=== PATIENT | male | born 1985 | race Caucasian/White ===

== ENCOUNTER 2018-01-16 22:51 | Emergency (ER) | payer BC, OTHER ==
--- NOTE | 2018-01-16 23:27 | EDM.PDOC ---
ED HPI GENERAL MEDICAL PROBLEM - General Chief Complaint: Drug or Alcohol Abuse Stated Complaint: DETOX MEDICAL CLEARANCE Time Seen by Provider: 01/16/18 23:04 Source of Information: Reports: Patient History Limitations: Reports: No Limitations - History of Present Illness INITIAL COMMENTS - FREE TEXT/NARRATIVE: This is a 32-year-old male. He was brought in by a commissioned police officer to be medically cleared and to be incarcerated. The patient is talking logically and he seems to be able to hold his balance and walk though he will stumble occasionally. He states he's been drinking beer only no hard liquor and he denies any drugs other than maybe some marijuana. He is not sure whether the marijuana might have been mixed in with his cigarettes. His last drink was around 10 PM and he was picked up by the officer around 10:30 PM. During the entire time I was in the room he was talking and able to carry on a conversation. He was reluctant to tell me how much she actually drunk this evening. The fact that his last drink was probably around 10 PM and at 11:30 I do not believe there is additional alcohol in his abdomen that has not been absorbed. I therefore will not draw an alcohol level since he is coherent and able to physically function for the most part and I'll release him with clearance to be incarcerated. - Related Data Allergies Allergy/AdvReac Type Severity Reaction Status Date / Time No Known Allergies Allergy Verified 01/09/14 16:27 Home Meds: Home Meds . [No Known Home Meds] 01/09/14 [History] Past Medical History - Past Health History Medical/Surgical History: Denies Medical/Surgical History Social & Family History - Family History Family Medical History: Noncontributory - Tobacco Use Smoking Status *Q: Unknown Ever Smoked - Recreational Drug Use Recreational Drug Use: No ED ROS GENERAL - Review of Systems Review Of Systems: See Below Constitutional: Denies: Fever, Chills HEENT: Reports: No Symptoms Respiratory: Reports: No Symptoms Cardiovascular: Reports: No Symptoms Endocrine: Reports: No Symptoms GI/Abdominal: Reports: No Symptoms : Reports: No Symptoms Musculoskeletal: Reports: No Symptoms Skin: Reports: No Symptoms Neurological: Reports: No Symptoms Psychiatric: Reports: No Symptoms Hematologic/Lymphatic: Reports: No Symptoms - Physical Exam Exam: See Below Exam Limited By: Intoxication General Appearance: Alert, WD/WN, No Apparent Distress Eye Exam: Bilateral Eye: Normal Inspection Ears: Normal External Exam Nose: Normal Inspection Throat/Mouth: Normal Inspection, Normal Lips, Normal Voice, No Airway Compromise Head Exam: Normocephalic Neck: Supple Respiratory/Chest: No Respiratory Distress, Lungs Clear, Normal Breath Sounds Cardiovascular: Regular Rate, Rhythm, No Murmur GI/Abdominal: Soft, Non-Tender Neuro Exam (Abbreviated): Alert, Oriented, No Motor/Sensory Deficits, Other ( Patient is awake and talking with no difficulty in carrying on conversation). No: Confused, Slow to Respond Back Exam: Normal Inspection, Full Range of Motion Extremities: Normal Inspection, Normal Range of Motion Psychiatric: Other (Patient appears to be essentially happy) Skin Exam: Warm, Dry Course - Vital Signs Last Recorded V/S: Last Vital Signs Temp 97.8 F 01/16/18 23:00 Pulse 96 01/16/18 23:00 Resp 16 01/16/18 23:00 BP 139/107 H 01/16/18 23:00 Pulse Ox 98 01/16/18 23:00 Departure - Departure Time of Disposition: 23:27 Disposition: Home, Self-Care 01 Condition: Fair Clinical Impression: Alcohol ingestion - Discharge Information Referrals: PCP,None [Primary Care Provider] - Additional Instructions: The patient is cognitively functional and able to carry a conversation, he is physically competent to be able to stand and walk though he does have some mild imbalance, I believe at this time after examination and talking with the patient that he does not have any emergency medical condition that would prevent him from being incarcerated, I will discharge him with the commissioned police officer he may return to the ER as needed
== END 2018-01-16 23:35 | disposition home or self-care (01) ==
LOC: JD.ED 22:51
DX: F10.129 Alcohol abuse with intoxication, unspecified (principal)
CPT/HCPCS: 99282; 99283

== ENCOUNTER 2018-01-18 07:55 | Emergency (ER) | payer BC, OTHER ==
--- NOTE | 2018-01-18 08:16 | EDM.PDOC ---
ED HPI GENERAL MEDICAL PROBLEM - General Chief Complaint: Back Pain or Injury Stated Complaint: LOWER BACK PAIN Time Seen by Provider: 01/18/18 08:07 - History of Present Illness INITIAL COMMENTS - FREE TEXT/NARRATIVE: 32-year-old male presents emergency room with low back pain. This pain started about a hour and a half ago about 5 minutes before it started the patient was assisting another worker moving and augur out of the bucket of a bobcat onto a bed of a truck. Shortly after this the patient developed pain in his upper lumbar lower thoracic region. Patient denies any loss of bowel or bladder control he has no radiating symptoms. Middle Back Pain Score (Numeric/FACES): 9 - Related Data Allergies Allergy/AdvReac Type Severity Reaction Status Date / Time No Known Allergies Allergy Verified 01/18/18 08:05 Home Meds: Home Meds . [No Known Home Meds] 01/09/14 [History] Past Medical History - Past Health History Medical/Surgical History: Denies Medical/Surgical History Social & Family History - Family History Family Medical History: Noncontributory ED ROS GENERAL - Review of Systems Review Of Systems: See Below Constitutional: Denies: Fever, Chills Respiratory: Reports: No Symptoms Cardiovascular: Reports: No Symptoms GI/Abdominal: Reports: No Symptoms ED EXAM,LOWER BACK PAIN/INJURY - Physical Exam Exam: See Below Exam Limited By: No Limitations General Appearance: Alert, No Apparent Distress Neck: Normal Inspection, Non-Tender Respiratory/Chest: No Respiratory Distress, Lungs Clear, Normal Breath Sounds Cardiovascular: Regular Rate, Rhythm, No Edema, No Murmur GI/Abdominal: Normal Bowel Sounds, Soft, Non-Tender Back Exam: Normal Inspection, Muscle Spasm (Patient has significant muscle spasm in the mid to upper lumbar and lower thoracic region this is noted bilaterally perhaps a little worse on the right compared to the left). No: Vertebral Tenderness Extremities: Normal Inspection, Normal Range of Motion, Non-Tender, Other ( Right leg raises are unremarkable he has some muscle tightness at the extremes of hip flexion) Neurological: Alert, Normal Mood/Affect Course - Vital Signs Last Recorded V/S: Last Vital Signs Temp 36.9 C 01/18/18 08:01 Pulse 84 01/18/18 08:01 Resp 13 01/18/18 08:01 BP 140/80 01/18/18 08:01 Pulse Ox 98 01/18/18 08:01 - Re-Assessments/Exams Free Text/Narrative Re-Assessment/Exam: 01/18/18 09:12 Thoracic and lumbar spine x-rays show no acute changes is developing some degenerative changes but nothing acute. Patient thinks he's getting some relief from the Toradol Departure - Departure Time of Disposition: 09:14 Disposition: Home, Self-Care 01 Clinical Impression: Low back strain - Discharge Information Instructions: Low Back Sprain, Muscle Strain, [id number], Lumbosacral Strain Referrals: PCP,None [Primary Care Provider] - Additional Instructions: Return to the emergency room with any questions problems worsening symptoms. You may return to work however no lifting greater than 20 pounds. Ibuprofen 200 mg take 4 3 times daily with food as needed for back pain. Follow-up with the L&I doct at the end of this week for recheck.
[2018-01-18] MEDS ORDERED: Ketorolac 60 MG/2 ML SDV IM ONE (08:17)
--- NOTE | 2018-01-18 12:06 | CR ---
Thoracic spine: AP, lateral and swimmer's views of the thoracic spine were obtained. Comparison: Prior lateral chest x-ray partially silhouetting the thoracic spine dated 01/09/14. Mild scattered disc space narrowing is noted within the mid and lower thoracic spine. Pedicles are intact. No subluxation or fracture is seen. Impression: 1. Slight disc space narrowing within the mid and lower thoracic spine. 2. Three-view thoracic spine study is otherwise unremarkable. Diagnostic code #2
--- NOTE | 2018-01-18 12:06 | CR ---
Lumbar spine: AP, lateral and coned-down lateral views centered to the lumbosacral junction were obtained. Comparison: No previous study. Mild disc space narrowing and mild osteophytes are seen anteriorly at L1-L2. Slight posterior disc space narrowing is noted at L5-S1. Disc spaces otherwise are preserved. Vertebral body heights are maintained. Minimal scoliosis is noted. Pedicles as well as visualized transverse and spinous processes are intact. Sacroiliac joints are within normal limits. No subluxation or fracture is seen. Impression: 1. Mild degenerative change and slight scoliosis. Diagnostic code #2
== END 2018-01-18 09:34 | disposition home or self-care (01) ==
LOC: JD.ED 07:55
DX: S39.012A Strain of muscle, fascia and tendon of lower back, initial encounter (principal); X58.XXXA Exposure to other specified factors, initial encounter
CPT/HCPCS: 72072; 72100; 96372; 99283; J1885

== ENCOUNTER 2018-01-29 07:46 | Emergency (ER) | payer SELFPAY ==
--- NOTE | 2018-01-29 08:19 | EDM.PDOC ---
ED HPI GENERAL MEDICAL PROBLEM - General Chief Complaint: ENT Problem Stated Complaint: DENTAL COMPLAINT Time Seen by Provider: 01/29/18 08:09 Left Lower Tooth/Teeth Pain Score (Numeric/FACES): 8 - Related Data Allergies Allergy/AdvReac Type Severity Reaction Status Date / Time No Known Allergies Allergy Verified 01/29/18 07:54 Home Meds: Home Meds . [No Known Home Meds] 01/09/14 [History] Past Medical History - Past Health History Medical/Surgical History: Denies Medical/Surgical History Social & Family History - Family History Family Medical History: Noncontributory - Tobacco Use Smoking Status *Q: Current Every Day Smoker Years of Tobacco use: 15 Packs/Tins Daily: 1 - Caffeine Use Caffeine Use: Reports: Coffee - Recreational Drug Use Recreational Drug Use: No ED ROS ENT - Review of Systems Review Of Systems: See Below ED EXAM, ENT - Physical Exam Exam: See Below Course - Vital Signs Last Recorded V/S: Last Vital Signs Temp 97.8 F 01/29/18 07:52 Pulse 87 01/29/18 07:52 Resp 16 01/29/18 07:52 BP 134/93 H 01/29/18 07:52 Pulse Ox 98 01/29/18 07:52 - Re-Assessments/Exams Free Text/Narrative Re-Assessment/Exam: 01/29/18 09:46 Initial exam, H&P performed by GOKUL Barth student. I have also examined patient. I agree with her history and exam as documented. Departure - Departure Time of Disposition: 08:18 Disposition: Home, Self-Care 01 Clinical Impression: Pain, dental - Discharge Information Referrals: PCP,None [Primary Care Provider] - Forms: ED Department Discharge Additional Instructions: Amoxicillin 1000 mg twice daily for 1 week, see dentist next Thursday as planned, Aleve or Naprosyn 500 mg twice daily, take that with food to help protect your stomach, You may take Tylenol up to 3 times daily in addition for further pain relief as needed.
--- NOTE | 2018-01-29 08:26 | EDM.PDOC ---
ED HPI GENERAL MEDICAL PROBLEM - General Chief Complaint: ENT Problem Stated Complaint: DENTAL COMPLAINT Time Seen by Provider: 01/29/18 08:09 Source of Information: Reports: Patient History Limitations: Reports: No Limitations - History of Present Illness INITIAL COMMENTS - FREE TEXT/NARRATIVE: 32 yo male presents to the ED for tooth pain x 3 weeks. He believes a left lower molar broke off 6 months ago and now for the past 3 weeks the pain and swelling around the tooth has increased. He has been trying ibuprofen and Tylenol with minimal relief. He has felt feverish and has had chills the past few days but has not checked his temperature. He has made a dental appt at [facility] for Thursday02/01/18 for tooth extraction. He was told to come to the ED to start antibiotics before the procedure. He denies any difficulty breathing but reports mild discomfort with swallowing due to pain and swelling. He has been eating and drinking ok. He believes the pain comes in waves and has associated nausea at its worst. Denies SOB, chest pain, vomiting, diarrhea , headache, dizziness. Onset: Gradual Duration: Week(s): (3 weeks, gradually worsening) Quality: Reports: Ache Severity: Moderate Improves with: Reports: None Worsens with: Reports: None Associated Symptoms: Reports: Fever/Chills Left Lower Tooth/Teeth Pain Score (Numeric/FACES): 8 - Related Data Allergies Allergy/AdvReac Type Severity Reaction Status Date / Time No Known Allergies Allergy Verified 01/29/18 07:54 Home Meds: Home Meds . [No Known Home Meds] 01/09/14 [History] Past Medical History - Past Health History Medical/Surgical History: Denies Medical/Surgical History Social & Family History - Family History Family Medical History: Noncontributory - Tobacco Use Smoking Status *Q: Current Every Day Smoker Years of Tobacco use: 15 Packs/Tins Daily: 1 - Caffeine Use Caffeine Use: Reports: Coffee - Recreational Drug Use Recreational Drug Use: No ED ROS ENT - Review of Systems Review Of Systems: See Below Constitutional: Reports: Fever, Chills. Denies: Malaise, Weakness HEENT: Reports: Dental Pain (Lower Left ). Denies: Throat Pain Respiratory: Denies: Shortness of Breath, Wheezing Cardiovascular: Reports: No Symptoms Endocrine: Reports: No Symptoms GI/Abdominal: Reports: Difficulty Swallowing (mild), Nausea. Denies: Abdominal Pain, Diarrhea, Vomiting Neurological: Denies: Dizziness, Headache ED EXAM, ENT - Physical Exam Exam: See Below Exam Limited By: No Limitations General Appearance: Alert, WD/WN, No Apparent Distress Ears: No: Mastoid Swelling, Mastoid Tenderness Mouth/Throat: Normal Lips, Normal Oropharynx, Dental Pain, Gum Swelling (mild lower left). No: Muffled Voice Head: Atraumatic, Normocephalic Neck: Supple, Lymphadenopathy (L) (submandibular) Respiratory/Chest: No Respiratory Distress, Lungs Clear, Normal Breath Sounds, No Accessory Muscle Use Cardiovascular: Regular Rate, Rhythm, No Gallop, No Murmur, No Rub Neurological: Alert, Oriented, Normal Cognition Psychiatric: Normal Affect, Normal Mood Skin: Warm, Dry Course - Vital Signs Last Recorded V/S: Last Vital Signs Temp 97.8 F 01/29/18 07:52 Pulse 87 01/29/18 07:52 Resp 16 01/29/18 07:52 BP 134/93 H 01/29/18 07:52 Pulse Ox 98 01/29/18 07:52 Departure - Departure Time of Disposition: 08:15 Disposition: Home, Self-Care 01 Clinical Impression: Pain, dental - Discharge Information Referrals: PCP,None [Primary Care Provider] - Forms: ED Department Discharge Additional Instructions: Amoxicillin 1000 mg twice daily for 1 week, see dentist next Thursday as planned, Aleve or Naprosyn 500 mg twice daily, take that with food to help protect your stomach, You may take Tylenol up to 3 times daily in addition for further pain relief as needed.
== END 2018-01-29 08:27 | disposition home or self-care (01) ==
LOC: JD.ED 07:46
DX: K08.89 Other specified disorders of teeth and supporting structures (principal); R22.0 Localized swelling, mass and lump, head; F17.210 Nicotine dependence, cigarettes, uncomplicated
CPT/HCPCS: 99282; 99283

== ENCOUNTER 2018-05-03 14:19 | Emergency (ER) | payer SELFPAY ==
[2018-05-03] MEDS ORDERED: Amoxicillin/Clavulanate K 500-125 MG Tab PO ONE (15:12)
--- NOTE | 2018-05-03 15:12 | EDM.PDOC ---
ED HPI GENERAL MEDICAL PROBLEM - General Chief Complaint: ENT Problem Stated Complaint: TOOTH ACHE Time Seen by Provider: 05/03/18 15:00 Source of Information: Reports: Patient History Limitations: Reports: No Limitations - History of Present Illness INITIAL COMMENTS - FREE TEXT/NARRATIVE: 32-year-old male presents for evaluation and treatment of dental pain. Patient reports that the pain is to the left lower jaw. He states this is been going on for several months. Review his records show he was seen in the ER on January 29. He was started on amoxicillin and instructed to take Tylenol and naproxen. States he did have an appointment on February 01 but he was doing better and unable to make the dental appointment due to works so he canceled the appointment. Has not since followed up with a dentist. Reports this flare is dental pain started over the last 2-3 days. He is appreciated facial swelling on the lower left jaw. He has also been experiencing a headache, nausea, dizziness and one episode of emesis this morning. No fevers or chills. He states he is getting some discomfort into his left ear and a headache. patient reports she's been self-medicating with alcohol. He has not been taking any Tylenol or Motrin. He did have about a sixpack of beer today. Last drink was around 11:00 this morning. He is a daily drinker, has been drinking more alcohol since the tooth pain has worsened. Patient's brother called and spoke with the supervisor accounting clerks. He has some concerned that he is suicidal. States he'll be in for a dental complaints but is actually suicidal. I asked the patient if he is having suicidal thoughts or plan and he denies this. I asked him about his brother calling. He states that the pain has been so that he may have said something like "I just want to (due to the pain)" but he states he is not actually suicidal. Left Lower Oral/Mouth Pain Score (Numeric/FACES): 8 - Related Data Allergies Allergy/AdvReac Type Severity Reaction Status Date / Time No Known Allergies Allergy Verified 05/03/18 14:50 Home Meds: Home Meds Amoxicillin/Potassium Clav [Augmentin 500-125 Tablet] 1 each PO BID #20 tablet 05/03/18 [Rx] Past Medical History - Past Health History Medical/Surgical History: Denies Medical/Surgical History - Past Surgical History HEENT Surgical History: Reports: Other (See Below) Other HEENT Surgeries/Procedures: broken tooth Social & Family History - Family History Family Medical History: Noncontributory - Tobacco Use Smoking Status *Q: Current Every Day Smoker Years of Tobacco use: 20 Packs/Tins Daily: 1 - Caffeine Use Caffeine Use: Reports: Coffee - Alcohol Use Days Per Week of Alcohol Use: 7 Number of Drinks Per Day: 6 Total Drinks Per Week: 42 - Recreational Drug Use Recreational Drug Use: No ED ROS ENT - Review of Systems Review Of Systems: See Below Constitutional: Denies: Fever, Chills HEENT: Reports: Dental Pain (Left lower molars), Ear Pain (Left) GI/Abdominal: Reports: Nausea, Vomiting Neurological: Reports: Dizziness, Headache Psychiatric: Denies: Depression, Homicidal Ideation, Suicidal Ideation ED EXAM, ENT - Physical Exam Exam: See Below Exam Limited By: Intoxication General Appearance: Alert, WD/WN, No Apparent Distress Eye Exam: Bilateral Eye: Normal Inspection, PERRL Ears: Normal External Exam, Normal Canal, Hearing Grossly Normal, Normal TMs Nose: Normal Inspection Mouth/Throat: Normal Inspection, Normal Gums, Dental Abcess (#19), Dental Pain ( #18 and #19), Dental Tenderness Neck: Normal Inspection. No: Lymphadenopathy (L), Lymphadenopathy (R) Respiratory/Chest: No Respiratory Distress, Lungs Clear, Normal Breath Sounds Cardiovascular: Normal Peripheral Pulses, Regular Rate, Rhythm, No Murmur Neurological: Alert, Oriented, Normal Cognition Psychiatric: Normal Affect, Normal Mood Skin: Warm, Dry, Normal Color Course - Vital Signs Last Recorded V/S: Last Vital Signs Temp 96.6 F 05/03/18 14:50 Pulse 104 H 05/03/18 14:50 Resp 16 05/03/18 14:50 BP 133/88 05/03/18 14:50 Pulse Ox 97 05/03/18 14:50 - Orders/Labs/Meds Meds: Medications Discontinued Medications Generic Name Dose Route Start Last Admin Trade Name Freq PRN Reason Stop Dose Admin Amoxicillin/Clavulanate Potassium 1 tab 05/03/18 15:12 05/03/18 15:31 Augmentin 500 Mg\\125 Mg PO 05/03/18 15:13 1 tab ONETIME ONE Administration Departure - Departure Time of Disposition: 15:14 Disposition: Home, Self-Care 01 Condition: Fair Clinical Impression: Pain, dental, Dental abscess - Discharge Information *PRESCRIPTION DRUG MONITORING PROGRAM REVIEWED*: Yes *COPY OF PRESCRIPTION DRUG MONITORING REPORT IN PATIENT SARAH: No Prescriptions: Amoxicillin/Potassium Clav [Augmentin 500-125 Tablet] 1 each PO BID #20 tablet Instructions: Dental Abscess Referrals: PCP,None [Primary Care Provider] - Forms: ED Department Discharge Additional Instructions: Follow-up with a dentist as soon as you are able to. take the augmentin as prescribed. 1 tab twice a day for 10 days. [id number] Aleve or naproxen twice a day. He may also take Tylenol as needed for additional pain relief. Do not take more than 4 g of Tylenol from all sources in 1 day. You may also try topical products such as Orajel or clove oil. Please return to the ER if your symptoms change or worsen.
== END 2018-05-03 15:30 | disposition home or self-care (01) ==
LOC: JD.ED 14:19
DX: K04.7 Periapical abscess without sinus (principal); F17.210 Nicotine dependence, cigarettes, uncomplicated
CPT/HCPCS: 99283; A9270